=== PATIENT | female | born 1995 | race African-American/Black ===

== ENCOUNTER 2017-02-15 12:00 | Emergency (ER) | payer OTHER ==
[~2017-02-15] VITALS: Ht 180.3 cm; Wt 85.3 kg
[2017-02-15] MEDS ORDERED: NS 1,000 ML IV ONE (13:45)
[2017-02-15] MEDS ORDERED: ONDANSETRON 4MG/2ML VIAL (J2405) IV ONE (13:45)
[2017-02-15] MEDS ORDERED: KETOROLAC 30 MG/ML VIAL (J1885) IV ONE (14:00)
[2017-02-15 14:53] LABS: BASO % 0.1 % (0.0-1.0); EOS # 0.1 K/mm3 (0.0-0.50); EOS % 1.4 % (0.0-3.0); LARGE UNSTAINED CELL # 0.1 K/mm3 (0.0-0.4); LARGE UNSTAINED CELL % 0.8 % (0.0-4.0); LYMPH # 0.5 K/mm3 (1.5-6.5); LYMPH % 6.4 % (24.0-44.0); MEAN CORPUSCULAR HGB CONC 33.9 g/dl (32.0-36.5); MEAN CORPUSCULAR VOLUME 88.4 fl (80.0-96.0); MONO # 0.3 K/mm3 (0.0-0.8); MONO % 3.8 % (0.0-5.0); NEUTROPHILS # 7.2 K/mm3 (1.8-7.7); NEUTROPHILS % 87.5 % (36.0-66.0); PLATELET COUNT, AUTOMATED 164 k/mm3 (150-450); WHITE BLOOD COUNT 8.2 K/mm3 (4.0-10.0)
[2017-02-15] MEDS ORDERED: NORCOTAB PO (14:58)
[2017-02-15] MEDS ORDERED: FLAG500T PO (14:58)
[2017-02-15 15:17] LABS: ANION GAP 9 MEQ/L (8-16); BLOOD UREA NITROGEN 11 MG/DL (7-18); CALCIUM LEVEL 8.6 MG/DL (8.5-10.1); CARBON DIOXIDE LEVEL 24 MEQ/L (21-32); CHLORIDE LEVEL 111 MEQ/L (98-107); GLOMERULAR FILTRATION RATE > 60.0 (>60); GLUCOSE, FASTING 82 MG/DL (70-105); POTASSIUM SERUM 4.6 MEQ/L (3.5-5.1); SODIUM LEVEL 144 MEQ/L (136-145)
--- NOTE | 2017-02-15 15:18 | REP ---
Pelvic ultrasound including transabdominal, endovaginal and Doppler ultrasound assessment: The bladder is poorly distended. The uterus is anteverted and normal size measuring 6.5 x 3.6 by 5.0 cm. The endometrium is not thickened measuring 5.1 mm. The right ovary is normal size measuring 4.7 x 2.1 x 2.3 cm. The left ovary is normal size measuring 3.3 x 1.7 x 1.8 cm. There are no dominant ovarian masses or cysts. There is a trace of free fluid in the posterior cul-de-sac. There is vascular flow in both ovaries. The Doppler resistive index of the intraparenchymal arteries of the right ovary is 0.63 and on the left ovary 0.52. Impression: Essentially negative pelvic ultrasound. There is vascular flow in both ovaries. There is no dominant ovarian mass or cyst. There is a trace of free fluid in the posterior cul-de-sac. Signed by Kvng Herron MD 02/15/2017 03:10 P
[2017-02-15] MEDS ORDERED: DIFL150T PO (16:21)
[2017-02-15 16:35] VITALS: BP 142/76
== END 2017-02-15 16:37 | disposition home or self-care (01) ==
LOC: M ED 12:00
DX: N76.0 Acute vaginitis (principal); Z88.8 Allergy status to other drugs, medicaments and biological substances
CPT/HCPCS: 76830; 76856; 80048; 81001; 81025; 85025; 87086; 87210; 87491; 87591; 93976; 96374; 96375; 99283; J1885; J2405

== ENCOUNTER → 2017-08-13 | Outpatient (REF) | payer OTHER ==
[2017-08-14 13:47] LABS: CHLAMYDIA DNA AMPLIFICATION POSITIVE (NEGATIVE); GC DNA AMPLIFICATION NEGATIVE (NEGATIVE)
== END ==
LOC: M SFHCLERA 20:24
DX: N89.8 Other specified noninflammatory disorders of vagina (principal)

== ENCOUNTER → 2018-04-03 | Outpatient (CLI) | payer OTHER | LOC: M CARPUL 10:16 | DX: R06.00 Dyspnea, unspecified (principal) ==

== ENCOUNTER 2018-05-07 09:09 | Emergency (ER) | payer OTHER | END 2018-05-07 10:07 | disposition home or self-care (01) | LOC: M ED 09:09 | DX: R09.82 Postnasal drip (principal); T50.905A Adverse effect of unspecified drugs, medicaments and biological substances, initial encounter; X58.XXXA Exposure to other specified factors, initial encounter; Y92.89 Other specified places as the place of occurrence of the external cause; J45.909 Unspecified asthma, uncomplicated; Z88.8 Allergy status to other drugs, medicaments and biological substances | CPT/HCPCS: 99283 ==

== ENCOUNTER → 2018-06-12 | Outpatient (REF) | payer OTHER ==
[~2018-06-12] MED LIST: DIFL150T PO; FLAG500T PO; NORCOTAB PO
[2018-06-12 21:31] LABS: APPEARANCE, URINE CLEAR (CLEAR); BACTERIA, URINE AUTO NEGATIVE (NEGATIVE); BILIRUBIN, URINE AUTO NEGATIVE (NEGATIVE); BLOOD, URINE BLOOD NEGATIVE (NEGATIVE); COLOR, URINE YELLOW (YELLOW); GLUCOSE, URINE (UA) AUTO NEGATIVE (NEGATIVE); KETONE, URINE AUTO NEGATIVE (NEGATIVE); LEUKOCYTE ESTERASE, URINE AUTO NEGATIVE (NEGATIVE); MUCUS, URINE SMALL (NEGATIVE); NITRITE, URINE AUTO NEGATIVE (NEGATIVE); PROTEIN, URINE AUTO NEGATIVE (NEGATIVE); RBC, URINE AUTO 0 /HPF (0-3); SPECIFIC GRAVITY URINE AUTO 1.027 (1.002-1.035); SQUAMOUS EPITHELIAL CELL UR AU 1 /HPF (0-6); WBC, URINE AUTO 1 /HPF (0-3)
== END ==
LOC: M LAB REF 15:03
PROVIDERS: ATTEND Physician Assistant
DX: N39.0 Urinary tract infection, site not specified (principal)

== ENCOUNTER 2018-12-22 10:25 | Emergency (ER) | payer OTHER ==
[~2018-12-22] VITALS: Ht 177.8 cm; Wt 84.1 kg
[~2018-12-22 10:25] MED LIST changes: +DOXY100C37 PO; +HYDR-3715 PO; +MONT10TA2; -NORCOTAB PO; +PERC5TAB12 PO; +TRINTAB11
[2018-12-22 11:54] LABS: BASO % 0.3 % (0.0-1.0); EOS # 0.1 10^3/uL (0.0-0.50); EOS % 0.8 % (0.0-3.0); HEMATOCRIT 38.4 % (36.0-47.0); HEMOGLOBIN 12.4 g/dl (12.0-15.5); LYMPH # 1.2 10^3/uL (1.5-6.5); LYMPH % 15.6 % (24.0-44.0); MEAN CORPUSCULAR HEMOGLOBIN 28.8 pg (27.0-33.0); MEAN CORPUSCULAR HGB CONC 32.3 g/dl (32.0-36.5); MEAN CORPUSCULAR VOLUME 89.1 fl (80.0-96.0); MONO # 0.4 10^3/uL (0.0-0.8); MONO % 4.9 % (0.0-5.0); NEUTROPHILS # 6.1 10^3/uL (1.8-7.7); NEUTROPHILS % 78.3 % (36.0-66.0); PLATELET COUNT, AUTOMATED 237 10^3/uL (150-450); RED BLOOD COUNT 4.31 10^6/uL (4.00-5.40); WHITE BLOOD COUNT 7.8 10^3/uL (4.0-10.0)
[2018-12-22 12:16] LABS: ALBUMIN 3.7 GM/DL (3.2-5.2); ALT/SGPT 30 U/L (12-78); BILIRUBIN,DIRECT 0.2 MG/DL (0.0-0.2); BILIRUBIN,TOTAL 0.4 MG/DL (0.2-1.0); BLOOD UREA NITROGEN 11 MG/DL (7-18); CALCIUM LEVEL 9.1 MG/DL (8.5-10.1); CARBON DIOXIDE LEVEL 28 MEQ/L (21-32); CHLORIDE LEVEL 106 MEQ/L (98-107); CREATININE FOR GFR 0.95 MG/DL (0.55-1.30); GLOMERULAR FILTRATION RATE > 60.0 (>60); GLUCOSE, FASTING 92 MG/DL (70-100); LIPASE 97 U/L (73-393); POTASSIUM SERUM 4.3 MEQ/L (3.5-5.1); SODIUM LEVEL 139 MEQ/L (136-145); TOTAL PROTEIN 7.1 GM/DL (6.4-8.2)
--- NOTE | 2018-12-22 14:21 | REP ---
Pelvic ultrasound including transabdominal and Doppler ultrasound assessment: Comparison is 12/02/2018. On the comparison study there was a 3.3 cm complex right ovarian cyst. On the study today the uterus is anteverted and normal size measuring 6.7 x 3.4 x 5.1 cm. The myometrium is unremarkable. The endometrium is not thickened measuring 6 mm. Right ovary: The previous right ovarian complex cyst is no longer present and has involuted. The right ovary is normal size measuring 3.5 x 2.0 x 3.5 cm. There is no other dominant mass or cyst. There is vascular flow in right ovary with the Doppler resistive index of the parenchymal arteries measuring 0.45. Left ovary: The left ovary is normal size measuring 2.3 x 1.4 x 2.1 cm. There is no dominant mass or cyst. There is vascular flow in the left ovary with the Doppler resistive index of the parenchymal arteries measuring 0.54. There is no free fluid. Impression: Essentially negative pelvic ultrasound. The previous right ovarian complex cyst has involuted. Electronically Signed by Kvng Herron MD 12/22/2018 02:13 P
[2018-12-22 14:58] VITALS: BP 120/68
== END 2018-12-22 14:57 | disposition home or self-care (01) ==
LOC: M ED 10:25
DX: R10.32 Left lower quadrant pain (principal); Z88.8 Allergy status to other drugs, medicaments and biological substances; Z79.3 Long term (current) use of hormonal contraceptives

== ENCOUNTER 2019-02-21 15:22 | Emergency (ER) | payer OTHER ==
[~2019-02-21] VITALS: Ht 177.8 cm; Wt 88.6 kg
[2019-02-21] MEDS ORDERED: MORPHINE 4 MG/ML 1ML VIAL/SYRINGE (J2270) IV ONE (15:45)
[2019-02-21] MEDS ORDERED: NS 1,000 ML IV ONE (15:45)
[2019-02-21 16:32] LABS: BASO % 0.3 % (0.0-1.0); EOS # 0.1 10^3/uL (0.0-0.5); EOS % 1.3 % (0.0-3.0); HEMATOCRIT 42.8 % (36.0-47.0); HEMOGLOBIN 13.6 g/dl (12.0-15.5); LYMPH # 1.7 10^3/uL (1.5-5.0); LYMPH % 23.9 % (24.0-44.0); MEAN CORPUSCULAR HEMOGLOBIN 28.7 pg (27.0-33.0); MEAN CORPUSCULAR HGB CONC 31.8 g/dl (32.0-36.5); MEAN CORPUSCULAR VOLUME 90.3 fl (80.0-96.0); MONO # 0.4 10^3/uL (0.0-0.8); MONO % 5.9 % (0.0-5.0); NEUTROPHILS # 4.8 10^3/uL (1.5-8.5); NEUTROPHILS % 68.3 % (36.0-66.0); PLATELET COUNT, AUTOMATED 209 10^3/uL (150-450); RED BLOOD COUNT 4.74 10^6/uL (4.00-5.40)
[2019-02-21 16:54] LABS: BLOOD UREA NITROGEN 7 MG/DL (7-18); CALCIUM LEVEL 8.4 MG/DL (8.5-10.1); CARBON DIOXIDE LEVEL 28 MEQ/L (21-32); CHLORIDE LEVEL 106 MEQ/L (98-107); CREATININE FOR GFR 0.83 MG/DL (0.55-1.30); GLOMERULAR FILTRATION RATE > 60.0 (>60); GLUCOSE, FASTING 81 MG/DL (70-100); POTASSIUM SERUM 4.3 MEQ/L (3.5-5.1); SODIUM LEVEL 139 MEQ/L (136-145)
[2019-02-21 18:43] LABS: APPEARANCE, URINE CLEAR (CLEAR); BACTERIA, URINE AUTO NEGATIVE (NEGATIVE); BILIRUBIN, URINE AUTO NEGATIVE (NEGATIVE); BLOOD, URINE BLOOD NEGATIVE (NEGATIVE); COLOR, URINE YELLOW (YELLOW); GLUCOSE, URINE (UA) AUTO NEGATIVE (NEGATIVE); KETONE, URINE AUTO TRACE mg/dL (NEGATIVE); LEUKOCYTE ESTERASE, URINE AUTO NEGATIVE (NEGATIVE); MUCUS, URINE SMALL (NEGATIVE); NITRITE, URINE AUTO NEGATIVE (NEGATIVE); PROTEIN, URINE AUTO NEGATIVE (NEGATIVE); RBC, URINE AUTO 0 /HPF (0-3); SPECIFIC GRAVITY URINE AUTO 1.017 (1.002-1.035); SQUAMOUS EPITHELIAL CELL UR AU 0 /HPF (0-6); UROBILINOGEN, URINE AUTO 0.2 mg/dL (0.0-2.0); WBC, URINE AUTO 0 /HPF (0-3)
[2019-02-21] MEDS ORDERED: KETOROLAC 30 MG/ML VIAL (J1885) IV ONE (18:45)
--- NOTE | 2019-02-21 18:53 | REPVR ---
PROCEDURE INFORMATION: Exam: US Pelvis Complete, Transabdominal Exam date and time: 02/21/2019 6:05 PM Clinical history: 23 years old, female; Pelvic pain; Additional info: Right adenexal pain TECHNIQUE: Imaging protocol: Real-time transabdominal pelvic ultrasound with image documentation. Complete exam. COMPARISON: US PELVIC NON-OB COMPLETE 12/22/2018 1:56 PM FINDINGS: Uterus/cervix: Uterus measures 7.6 x 4.6 x 5.2 cm. AP endometrial stripe thickness measures 8 mm. Right adnexa: Right ovary measures 2.5 x 1.3 x 1.1 cm. Positive blood flow. Left adnexa: Left ovary measures 1.3 x 3.0 x 1.4 cm. Positive blood flow. Free fluid: Small amount of anechoic free fluid in the right upper quadrant, right lower quadrant, and pelvis. Bladder: No filling defect within the bladder lumen. IMPRESSION: Mild ascites. Electronically signed by: Vivi Bassett On 02/21/2019 18:53:14 PM
[2019-02-21] MEDS ORDERED: IBUP80TA PO (18:54)
[2019-02-21 18:58] VITALS: BP 129/82
== END 2019-02-21 19:25 | disposition home or self-care (01) ==
LOC: M ED 15:22
DX: N83.201 Unspecified ovarian cyst, right side (principal); Z88.8 Allergy status to other drugs, medicaments and biological substances; Z79.3 Long term (current) use of hormonal contraceptives
CPT/HCPCS: 76856; 80048; 81001; 84702; 85025; 96361; 96374; 96375; 99284; J1885; J2270

== ENCOUNTER 2019-05-31 15:17 | Emergency (ER) | payer OTHER ==
[~2019-05-31] VITALS: Ht 177.8 cm; Wt 87.3 kg
[~2019-05-31 15:17] MED LIST changes: +IBUP80TA PO
[2019-05-31] MEDS ORDERED: Dayquil PO (15:48)
[2019-05-31] MEDS ORDERED: SING4CHW9 PO (15:48)
[2019-05-31] MEDS ORDERED: CETI10CA13 PO (15:48)
[2019-05-31] MEDS ORDERED: ORTH1TAB8 PO (15:48)
[2019-05-31] MEDS ORDERED: ACETAMINOPHEN 325 MG TAB PO ONE (16:00)
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
[2019-05-31] MEDS ORDERED: ROBA750T4 PO (17:12)
[2019-05-31] MEDS ORDERED: methocarbamoL 750 MG TAB PO ONE (17:15)
[2019-05-31 17:17] VITALS: BP 135/82
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
== END 2019-05-31 17:20 | disposition home or self-care (01) ==
LOC: M ED 15:17
DX: S16.1XXA Strain of muscle, fascia and tendon at neck level, initial encounter (principal); V48.5XXA Car driver injured in noncollision transport accident in traffic accident, initial encounter; Y92.410 Unspecified street and highway as the place of occurrence of the external cause; Z88.8 Allergy status to other drugs, medicaments and biological substances; Z79.899 Other long term (current) drug therapy; Z79.3 Long term (current) use of hormonal contraceptives

== ENCOUNTER → 2019-07-14 | Outpatient (REF) | payer OTHER ==
[~2019-07-14] MED LIST changes: +CETI10CA13 PO; +Dayquil PO; -MONT10TA2; +MONT10TA4; +ORTH1TAB8 PO; +ROBA750T4 PO; +SING4CHW9 PO
[2019-07-15 13:23] LABS: CHLAMYDIA DNA AMPLIFICATION NEGATIVE (NEGATIVE); GC DNA AMPLIFICATION NEGATIVE (NEGATIVE)
== END ==
LOC: M SFHCLERA 19:27
PROVIDERS: ATTEND Nurse Practitioner Family
DX: R39.9 Unspecified symptoms and signs involving the genitourinary system (principal)
CPT/HCPCS: 81002; 81025; 87086; 87661; G0463

== ENCOUNTER 2019-08-12 23:25 | Emergency (ER) | payer OTHER ==
[~2019-08-12] VITALS: Ht 177.8 cm; Wt 92.7 kg
[2019-08-12] MEDS ORDERED: TRINTAB11 (23:32)
[2019-08-13] MEDS ORDERED: ALBUTEROL 90 MCG/ACT 8GM HFA INHALER INH ONE
[2019-08-13 00:53] VITALS: BP 126/74
--- NOTE | 2019-08-13 08:13 | REP ---
Chest x-ray: Two views. History: Shortness of breath . Comparison study: No comparison study . Findings: The lungs are well inflated and free of infiltrate. The pleural angles are sharp. The heart size is normal. Pulmonary vasculature is not increased. No significant bony abnormality is seen. Impression: Negative chest x-ray. Electronically Signed by Hebert Mcgrath MD 08/13/2019 08:05 A
== END 2019-08-13 00:54 | disposition home or self-care (01) ==
LOC: M ED 23:25
DX: J45.901 Unspecified asthma with (acute) exacerbation (principal); J06.9 Acute upper respiratory infection, unspecified; J02.8 Acute pharyngitis due to other specified organisms; R09.82 Postnasal drip; Z79.899 Other long term (current) drug therapy; Z88.6 Allergy status to analgesic agent

== ENCOUNTER 2019-11-29 21:36 | Emergency (ER) | payer OTHER ==
[~2019-11-29] VITALS: Ht 177.8 cm; Wt 89.1 kg
[2019-11-29 21:37] VITALS: BP 125/78
[2019-11-29] MEDS ORDERED: BACT800T5 PO (22:15)
[2019-11-29] MEDS ORDERED: BACTRIM 160MG/800MG DS TAB PO ONE (22:15)
[2019-11-30] MEDS ORDERED: PROAAER10 (08:46)
[2019-11-30] MEDS ORDERED: BACI500O21 TOP (09:32)
== END 2019-11-29 22:26 | disposition home or self-care (01) ==
LOC: M ED 21:36
DX: S70.361A Insect bite (nonvenomous), right thigh, initial encounter (principal); Z88.6 Allergy status to analgesic agent; S80.861A Insect bite (nonvenomous), right lower leg, initial encounter; J45.909 Unspecified asthma, uncomplicated; L29.9 Pruritus, unspecified; W57.XXXA Bitten or stung by nonvenomous insect and other nonvenomous arthropods, initial encounter; Y92.9 Unspecified place or not applicable; Y99.8 Other external cause status; Y93.9 Activity, unspecified

== ENCOUNTER 2019-11-30 08:32 | Emergency (ER) | payer OTHER ==
[~2019-11-30] VITALS: Ht 177.8 cm; Wt 91.3 kg
[2019-11-30 08:32] VITALS: BP 122/79
[~2019-11-30 08:32] MED LIST changes: +BACT800T5 PO
[2019-11-30] MEDS ORDERED: PROAAER10 (08:46)
[2019-11-30] MEDS ORDERED: BACI500O21 TOP (09:32)
== END 2019-11-30 09:49 | disposition home or self-care (01) ==
LOC: M ED 08:32
DX: T24.231A Burn of second degree of right lower leg, initial encounter (principal); S80.861A Insect bite (nonvenomous), right lower leg, initial encounter; J45.909 Unspecified asthma, uncomplicated; Z88.6 Allergy status to analgesic agent; X58.XXXA Exposure to other specified factors, initial encounter; Y92.9 Unspecified place or not applicable; Y99.9 Unspecified external cause status; L03.115 Cellulitis of right lower limb; Y93.9 Activity, unspecified; Z79.899 Other long term (current) drug therapy